=== PATIENT | male | born 1975 | race Caucasian/White ===

== ENCOUNTER 2018-03-03 13:45 | Emergency (ER) | payer MEDICAID ==
[~2018-03-03] VITALS: Ht 180.3 cm; Wt 72.7 kg
[2018-03-03 13:51] VITALS: Ht 180.3 cm; Wt 72.7 kg
[2018-03-03] MEDS ORDERED: DILANTIN30 MG (13:59)
[2018-03-03] MEDS ORDERED: ATARAX 25 MG TA25 MG (14:00)
[2018-03-03] MEDS ORDERED: ZOLOFT100 MG (14:00)
[2018-03-03] MEDS ORDERED: HALDOL5 MG (14:01)
[2018-03-03] MEDS ORDERED: SEROQUEL300 MG (14:01)
[2018-03-03] MEDS ORDERED: BENZTROPINE MESY1 MG (14:02)
[2018-03-03 15:30] LABS: BASOPHILS 0.8 % (0-2); EOSINOPHILS 3.4 % (0-7); HEMATOCRIT 42.9 % (42.0-54.0); HEMOGLOBIN 14.2 g/dL (13.5-17.5); IMMATURE GRANULOCYTES 1.5 % (0-5); LYMPHOCYTES 19.6 % (15-50); MCH 31.2 pg (26.0-34.0); MCHC 33.1 g/dL (31.0-37.0); MCV 94.3 fL (80.0-100.0); MEAN PLATELET VOLUME 10.9 fL (7.4-10.4); MONOCYTES 9.4 % (2-11); NEUTROPHILS 65.3 % (40-80); PLATELET COUNT 243 10x3/uL (130-400); RBC 4.55 10x6/uL (4.20-6.10); RDW 13.7 % (11.5-14.5); WBC 9.6 10x3/uL (4.8-10.8)
[2018-03-03 15:35] LABS: APPEARANCE CLEAR (CLEAR); BILIRUBIN NEGATIVE (NEGATIVE); COLOR YELLOW (YELLOW); GLUCOSE NEGATIVE (NEGATIVE); KETONE NEGATIVE (NEGATIVE); NITRITE NEGATIVE (NEGATIVE); PROTEIN NEGATIVE (NEGATIVE); SPECIFIC GRAVITY 1.015 (1.005-1.020); UROBILINOGEN NORMAL (NORMAL)
[2018-03-03 15:55] LABS: UDS - AMPHET NEGATIVE QUAL (NEGATIVE); UDS - BARB NEGATIVE QUAL (NEGATIVE); UDS - BENZO NEGATIVE QUAL (NEGATIVE); UDS - COCAINE NEGATIVE QUAL (NEGATIVE); UDS - OPIATE NEGATIVE QUAL (NEGATIVE); UDS - PCP NEGATIVE QUAL (NEGATIVE); UDS - THC NEGATIVE QUAL (NEGATIVE)
[2018-03-03 16:01] LABS: ALBUMIN 3.2 g/dL (3.4-5.0); ALKALINE PHOSPHATASE 101 U/L (46-116); ALT (SGPT) 102 U/L (10-68); BILIRUBIN - TOTAL 0.18 mg/dL (0.2-1.3); CALC OSMOLALITY 280 mosm/kg (275-300); CARBON DIOXIDE 28.2 mmol/L (21.0-32.0); CHLORIDE - SERUM 103 mmol/L (98-107); CREATININE - SERUM 0.8 mg/dL (0.6-1.3); GLUCOSE 96 mg/dL (74-106); PROTEIN - SERUM 7.4 g/dL (6.4-8.2); SODIUM 141 mmol/L (136-145); UREA NITROGEN 12 mg/dL (7-18); eGFR NON AFRICAN AMERICAN > 90 mL/min (90-120)
[2018-03-04 06:00] VITALS: BP 120/78
== END 2018-03-04 07:50 ==
LOC: D.ER 13:45
PROVIDERS: Emergency Medicine
DX: R45.851 Suicidal ideations (principal); Z91.14 Patient's other noncompliance with medication regimen

== ENCOUNTER 2020-09-01 17:37 | Emergency (ER) | payer MEDICAID ==
[2018-03-03 13:51] VITALS: BMI 22.3
[~2020-09-01 17:37] MED LIST: ATARAX 25 MG TA25 MG; BENZTROPINE MESY1 MG; DILANTIN30 MG; HALDOL5 MG; SEROQUEL300 MG; ZOLOFT100 MG
== END 2020-09-01 18:23 | disposition left against medical advice (07) ==
LOC: D.ER 17:37
DX: F29 Unspecified psychosis not due to a substance or known physiological condition (principal)

== ENCOUNTER 2020-09-03 14:56 | Emergency (ER) | payer SELFPAY ==
[~2020-09-03] VITALS: Ht 180.3 cm; Wt 61.4 kg
[2020-09-03 15:17] VITALS: Ht 180.3 cm; Wt 61.4 kg
[2020-09-03 16:01] LABS: BASOPHILS 1.3 % (0-2); EOSINOPHILS 1.9 % (0-7); HEMATOCRIT 41.6 % (42.0-54.0); LYMPHOCYTES 25.1 % (15-50); MCH 31.2 pg (26.0-34.0); MCHC 33.7 g/dL (31.0-37.0); MCV 92.3 fL (80.0-100.0); MEAN PLATELET VOLUME 8.6 fL (7.4-10.4); MONOCYTES 7.6 % (2-11); NEUTROPHILS 64.1 % (40-80); PLATELET COUNT 240 10x3/uL (130-400); RBC 4.51 10x6/uL (4.20-6.10); RDW 13.8 % (11.5-14.5)
[2020-09-03 16:38] LABS: CALC OSMOLALITY 277 mosm/kg (275-300); CALCIUM 8.9 mg/dL (8.5-10.1); CARBON DIOXIDE 21.9 mmol/L (21.0-32.0); CHLORIDE - SERUM 108 mmol/L (98-107); CREATININE - SERUM 0.9 mg/dL (0.6-1.3); GLUCOSE 99 mg/dL (74-106); POTASSIUM - SERUM 3.4 mmol/L (3.5-5.1); SODIUM 141 mmol/L (136-145); UREA NITROGEN 5 mg/dL (7-18); eGFR NON AFRICAN AMERICAN > 90 mL/min (90-120)
[2020-09-03 16:44] LABS: ALBUMIN 3.6 g/dL (3.4-5.0); ALKALINE PHOSPHATASE 104 U/L (30-120); ALT (SGPT) 43 U/L (10-68); BILIRUBIN - TOTAL 0.18 mg/dL (0.2-1.3)
[2020-09-03 16:45] LABS: ACETAMINOPHEN < 10.0 ug/mL (10.0-30.0)
--- NOTE | 2020-09-03 17:39 | NUR ---
DR. VAUGHN NOTIFIED AND SITTER ORDERED. SITTER IN LINE OF SIGHT. NOTIFIED CHARGE NURSE AND ATTENDING IN REGARDS TO ASSESSMENT FINDINGS. RESOURCES GIVEN TO PT AND SAFETY PLAN INTIATED.
[2020-09-03 19:15] LABS: BACTERIA FEW HPF (<MOD); BILIRUBIN NEGATIVE (NEGATIVE); KETONE NEGATIVE mg/dL (< 1+); NITRITE NEGATIVE (NEGATIVE); UROBILINOGEN 2 mg/dL (< 2); WHITE CELLS - URINE 1 HPF (0-1)
[2020-09-03 19:21] LABS: UDS - AMPHET POSITIVE QUAL (NEGATIVE); UDS - BARB NEGATIVE QUAL (NEGATIVE); UDS - BENZO NEGATIVE QUAL (NEGATIVE); UDS - COCAINE NEGATIVE QUAL (NEGATIVE); UDS - OPIATE NEGATIVE QUAL (NEGATIVE); UDS - PCP NEGATIVE QUAL (NEGATIVE); UDS - THC POSITIVE QUAL (NEGATIVE)
[2020-09-03] MEDS ORDERED: REMERON15 MG PO (23:56)
[2020-09-04 02:37] VITALS: BP 127/79
== END 2020-09-04 02:37 ==
LOC: D.ER 14:56
PROVIDERS: Family Medicine
DX: R45.851 Suicidal ideations (principal); F19.10 Other psychoactive substance abuse, uncomplicated; F29 Unspecified psychosis not due to a substance or known physiological condition; F20.9 Schizophrenia, unspecified